=== PATIENT | male | born 1985 | race African-American/Black ===

== ENCOUNTER 2019-05-12 08:29 | Emergency (ER) | payer BC, SELFPAY ==
[2019-05-12 08:30] VITALS: BP 160/80; PULSE 97; RESP 16; TEMP 36.4; O2SAT 100; BMI 33.0
--- NOTE | 2019-05-12 08:47 | CT_ITS ---
STUDY: CT ABDOMEN AND PELVIS WITH CONTRAST REASON FOR EXAM: Male, 33 years old. ABD AND BACK PAIN, NAUSEA, BLOODY STOOL SINCE YESTERDAY, NO PREV SURG, HTN ON NO MEDS RADIATION DOSAGE (If Supplied By Facility): CTDIvol = ( 15.12 ) mGy, DLP = ( 1264.35 ) mGycm TECHNIQUE: Transaxial images were obtained from the dome of the diaphragm to the symphysis pubis without oral contrast. Oral and amp; IV Gastrografin and amp; 100mL Isovue-300 was administered. Sagittal and coronal images were reconstructed. Individualized dose optimization techniques were used for this CT. COMPARISON: None. FINDINGS: The visualized lung bases are unremarkable. The visualized portions of the heart are within normal limits. Normal liver. Normal gallbladder and extrahepatic biliary system. Normal spleen. Normal pancreas. Normal bilateral adrenal glands. Normal right kidney. Normal left kidney. There is a small hiatal hernia. Normal small intestine. Normal colon. The appendix is visualized and appears normal. Normal abdominal aorta. Normal inferior vena cava. Normal retroperitoneum. Normal urinary bladder. Small benign-appearing bilateral inguinal lymph nodes. Straightening of the normal lumbar lordosis. CT/Abdomen/Pelvis WITH Contrast IMPRESSION: No acute abnormality is seen. Electronically Signed: Valdez Olmos, at 10:55 EST , Service support ,
--- NOTE | 2019-05-12 09:01 | ED.VISSUMM ---
- ER Visit Summary Date of Service: 05/12/19 Chief Complaint: Back pain History of Present Illness: The patient is a 33 M presenting with back pain. Patient states this started on Sunday. He states he lifted up his dog who weighs 60 pounds and has had pain in his left lower back since. He denies radiation of pain. Denies bowel or bladder incontinence. He is able to ambulate with pain. He went to [facility] on Sunday and was given prescription for [place], Valium, naproxen. He states he continues to have pain. He states since yesterday he has been having blood in his stool. He states initially was constipated and now is having loose stool with bright red blood. He complains of diffuse abdominal pain. Denies nausea or vomiting. Denies fever. Denies other complaints. Physical Examination: Vitals are stable. Patient is afebrile. Alert no acute distress. HEENT exam is unremarkable. Neck is supple. Lungs are clear and equal bilaterally. Heart is regular rate and rhythm. Abdomen is soft diffuse tenderness with no guarding or rebound Back: Left paraspinal lumbar muscle tenderness, no midline tenderness Extremities are unremarkable. Skin is warm and dry. No focal neurologic deficit. Normal strength and sensation Remainder of exam is unremarkable. Emergency Department Course and Treatment: Patient was given morphine, Zofran IV. CBC, chemistries unremarkable. Total bili 1.5. Urinalysis shows 10-25 white blood cells, 0-5 epithelial cells. Urine culture was sent. Patient denies penile discharge, rash, concerns for STD. Stool is guaiac negative. CT abdomen pelvis shows no acute abnormality. Patient continues to have pain and was given Dilaudid. On reevaluation he is resting comfortably. He is given prescriptions for Flexeril and Lidocaine patch. He is given prescription for Zofran and Bactrim. He is given Dr. Bhagat on-call for no doctor for follow-up. Advised return ED if worsening complaints. Disposition: Discharge home Impression: Lumbar strain, UTI, reported GI bleed This note was generated with [employer] dictation software. It may contain incorrect words, spelling, and punctuation that were not noted in review of the chart prior to signing ED Disposition - Plan for ED Patient: Instructions: Relieving Back Pain, Understanding Urinary Tract Infections (UTIs) Prescriptions: Smz/Tmp Ds [Bactrim Ds] 1 tab PO BID #14 tab Prescription Printed cycloBENZAPRine HCl [Flexeril] 10 mg PO TID PRN #20 tab PRN Reason: Muscle Spasm Prescription Printed Lidocaine [Lidocaine Pain Relief] 1 ea TP DAILY #7 adh..patch Prescription Printed Ondansetron [Zofran Odt] 4 mg PO Q8H PRN PRN #10 tab PRN Reason: Nausea Prescription Printed Referrals: Mega Bhagat III, MD [STAFF PHYSICIAN] -
[2019-05-12 09:09] LABS: Absolute Lymphocyte Count 2.16 X10^3/uL (0.83-4.51); Absolute Neutrophil Count 3.3 X10^3/uL (2.0-7.7); Basophil# 0.02 X10^3/uL; Basophil% 0.3 % (0-1); Eosinophil# 0.15 X10^3/uL; Eosinophils% 2.4 % (0-5); Hematocrit 43.5 % (40-54); Hemoglobin 14.4 g/dL (13.0-16.5); Lymphocyte # 2.16 X10^3/ul (4.0); Lymphocyte % 34.6 % (19-41); Mean Corp Hgb Conc 33.1 g/dL (32-36); Mean Corpuscular Hgb 28.1 pg (27.0-32.0); Mean Corpuscular Volume 84.8 fL (80-94); Mean Platelet Vol. 9.6 fl (6.2-12.0); Monocyte# 0.57 X10^3/uL; Monocyte% 9.1 % (0-10); NRBC Flagged by Analyzer 0 % (0-5); Neutrophil # 3.33 X10^3/uL (2.7-7.7); Neutrophil % 53.4 % (47-70); Platelet Count 260 K/mm3 (150-450); Red Blood Count 5.13 M/mm3 (4.6-6.2); White Blood Count 6.2 K/mm3 (4.4-11.0)
[2019-05-12 09:27] LABS: ALB/GLOB Ratio 1.4 RATIO (0.9-2.4); AST(SGOT) 26 U/L (15-37); Alanine Aminotransfer ALT/SGPT 47 U/L (16-61); Albumin, Serum 4.2 g/dL (3.2-5.0); Alkaline Phosphatase 68 U/L (45-117); Anion Gap 5 (5-15); BUN 14 mg/dL (7-18); BUN/Creat Ratio 19.5 RATIO (10-20); Calcium,Total 9.1 mg/dL (8.5-10.1); Chloride 102 mmol/L (98-107); Creatinine, Serum 0.72 mg/dL (0.70-1.30); EST Glomerular Filtration Rate 132 mL/min (>60); Est Glom Filt Rate - Afr Amer 159 mL/min (>60); Estimated Creatinine Clearance 161.83 ml/min; Glucose 96 mg/dL (74-106); Potassium 3.6 mmol/L (3.5-5.1); Protein, Total 7.2 g/dL (6.4-8.2); Sodium Level 136 mmol/L (136-145)
[2019-05-12] MEDS: 0.9% Normal Saline 1,000 ML 1000 ML IV (09:43)
[2019-05-12] MEDS: Ondansetron 4 MG/2 ML Vial IV (09:43)
[2019-05-12] MEDS: Morphine 4 MG/ML Syringe IV (09:44)
[2019-05-12 10:56] LABS: Mucous, Urine 0 SEEN /hpf (<or=2+)
[2019-05-12 11:02] LABS: Color, Urine Yellow (Yellow); Glucose, Dipstick Normal (Normal); Ketone-Dipstick Negative (Negative); Leukocyte Esterase-Dipstick 500 /ul (Negative); Nitrite-Dipstick Negative (Negative); Occult Blood-Urine 10 /ul (Negative); Protein-Dipstick Negative (Negative); Urine Bilirubin Dipstick Negative (Negative); Urine Clarity Sl. Cloudy (Clear); Urine Urobilinogen Normal (Normal)
[2019-05-12 11:03] VITALS: RESP 18
[2019-05-12] MEDS: HYDROmorphone 1 MG/ML Syringe IV (11:13)
[2019-05-12 11:17] LABS: Bacteria RARE /hpf (None Seen); Red Blood Cells-Urine 0-5 SEEN /hpf (0-5); Squamous Epithelial Cells - UA 0-5 SEEN /hpf (0-5); White Blood Cells 10-25 SEEN /hpf (0-5)
--- NOTE | 2019-05-12 11:35 | ED.DEP ---
ED Disposition - Plan for ED Patient: Instructions: Relieving Back Pain, Understanding Urinary Tract Infections (UTIs) Prescriptions: Smz/Tmp Ds [Bactrim Ds] 1 tablet PO BID #14 tablet cycloBENZAPRine HCl [Flexeril] 10 mg PO TID PRN #20 tablet PRN Reason: Muscle Spasm Lidocaine [Lidocaine Pain Relief] 1 each TP DAILY #7 adh..patch Ondansetron [Zofran Odt] 4 mg PO Q8H PRN PRN #10 tablet PRN Reason: Nausea Referrals: Mega Bhagat III, MD [STAFF PHYSICIAN] -
[2019-05-12] MEDS: Smz/Tmp Ds Tablet 1 TABLET PO (12:00)
== END 2019-05-12 12:01 | disposition home or self-care (01) ==
PROVIDERS: Emergency Provider Emergency Medicine
DX: S39.012A Strain of muscle, fascia and tendon of lower back, initial encounter (principal); N39.0 Urinary tract infection, site not specified; K92.1 Melena; X50.0XXA Overexertion from strenuous movement or load, initial encounter; X50.9XXA Other and unspecified overexertion or strenuous movements or postures, initial encounter; Y93.89 Activity, other specified; Y92.89 Other specified places as the place of occurrence of the external cause; Y99.8 Other external cause status
CPT/HCPCS: 74177; 80053; 81001; 82274; 85025; 87086; 87088; 96361; 96374; 96375; 99284; J7030; Q9967; A4216; J2405

== ENCOUNTER 2021-06-01 09:48 | Emergency (ER) | payer BC, SELFPAY ==
[2021-06-01 09:51] VITALS: BP 107/90; PULSE 64; RESP 17; TEMP 36.3; O2SAT 100; BMI 30.4
--- NOTE | 2021-06-01 10:22 | EKG12_ITS ---
Test Reason : CP Blood Pressure : / mmHG Vent. Rate : 060 BPM Atrial Rate : 060 BPM P-R Int : 152 ms QRS Dur : 100 ms QT Int : 380 ms P-R-T Axes : 060 067 034 degrees QTc Int : 380 ms Normal sinus rhythm Normal ECG Confirmed by ZENAIDA ROMAN, GRICELDA ([id number]), editorial cartoonist KUMAR HUMPHREY ([id number]) on 06/02/2021 1:58:05 PM Referred By: KRISTIE/GREGORY Confirmed By:RENA ESTEVEZ MD
--- NOTE | 2021-06-01 10:22 | RAD_ITS ---
STUDY: X-RAY CHEST REASON FOR EXAM: Male, 35 years old. Chest pain radiating into back TECHNIQUE: Single AP portable view of the chest. COMPARISON: None. FINDINGS: EKG electrodes are seen. The lungs are clear and expanded. There is no demonstrated pleural abnormality. Normal size heart. Normal mediastinum and niko. Normal visualized pulmonary arteries. Normal visualized aortic arch and descending thoracic aorta. Normal visualized thoracic spine. Normal visualized ribs, clavicles, and shoulders. There is no demonstrated abnormality of the visualized soft tissue structures of the upper abdomen. RAD/Chest PA and Lateral IMPRESSION: Normal x-ray examination of the chest. Electronically Signed: Valdez Olmos MD at 10:55 EST ,
--- NOTE | 2021-06-01 10:24 | NURSING ---
NO OLD EKGS
--- NOTE | 2021-06-01 10:25 | ED.VIS.CHEST ---
HPI History of Present Illness Chief Complaint: Chest Pain Informant: patient Onset/Context/Timing Onset: Today (4 hrs ago) Timing: Continuous Quality: Positive for Pain Location: Substernal (Radiates in the mid upper back) Current Severity: Moderate Maximum Severity: Moderate Worsened By: Movement of Torso and Breathing Relieved By: Remaining Still Associated Symptoms: Negative for Nausea, Vomiting, Diaphoresis, Dyspnea, Cough, Fever, Lightheadedness and Palpitations Narrative Narrative: Patient states he woke up this morning, went to the bathroom and while he was walking he noticed that he started having discomfort in his chest substernal radiating to his upper back it is persisted for hours he denies dyspnea associated with it. No recent symptoms of a DVT, no recent travel, immobilization, hospitalization, or surgery. No history of DVT or PE. He denies any recent injury or overuse that could explain this. He states he has had this discomfort off and on before and did not think much of it but this is worse and more persistent so he presented for it. His states they have been for 3 years and then that time he has complained of multiple physical ailments, but never seen any physician. PFSH PFSH Medical History no medical history no medical history Home Medications cyclobenzaprine 10 mg PO TID PRN #20 tab 05/12/19 [Rx Last Taken Unknown] lidocaine 1 ea TP DAILY #7 adh..patch 05/12/19 [Rx Last Taken Unknown] ondansetron 4 mg PO Q8H PRN PRN #10 tab 05/12/19 [Rx Last Taken Unknown] sulfamethoxazole-trimethoprim 1 tab PO BID #14 tab 05/12/19 [Rx Last Taken Unknown] naproxen 500 mg PO BID PRN #14 tab 06/01/21 [Rx Last Taken Unknown] Allergy/AdvReac Type Severity Reaction Status Date / Time acetaminophen [From Percocet] Allergy Vomiting Verified 06/01/21 09:50 oxycodone [From Percocet] Allergy Vomiting Verified 06/01/21 09:50 Surgical History no surgical history Social History (Updated 06/01/21 @ 10:[address] Obi Johnson MD) Smoking Status: Current every day smoker tobacco type: cigarettes substance use type: does not use ROS ROS ED Constitutional Constitutional ED: Denies chills or fever(s) Eyes Eyes: Denies change in vision or diplopia ENT ENT ED: Denies rhinorrhea or sore throat Cardiovascular Cardiovascular: Reports chest pain; Denies palpitations or pedal edema Respiratory/Chest Respiratory/Chest: Denies cough or dyspnea Gastrointestinal Gastrointestinal: Denies abdominal pain, diarrhea, nausea or vomiting Genitourinary Genitourinary ED: Denies dysuria or hematuria Musculoskeletal Musculoskeletal: Reports as per HPI and back pain; Denies neck pain Integumentary Denies abscess or rash Neurologic Neurologic: Denies headache(s), paresthesias or weakness Psychiatric Psychiatric: Denies anxiety or suicidal thoughts EXAM Physical Exam Const Vital Signs: 06/01/21 09:51 06/01/21 11:19 Temperature 97.4 F L Temperature Source Temporal Pulse Rate 64 Respiratory Rate 17 Respiratory Effort Normal Non-Labored Blood Pressure 107/90 H Blood Pressure Mean 95 Pulse Ox 100 Oxygen Delivery Method Room Air Positive well nourished and well developed General Appearance ED: well developed and NAD HEENT Reports moist mucous membranes normocephalic and atraumatic Eyes PERRL and EOMs intact bilaterally Neck full ROM and supple Resp normal respiratory effort and clear to auscultation bilaterally Cardio regular rate, regular rhythm and no murmurs Rate: Negative for tachycardic GI non-tender and non-distended Auscultation: normoactive bowel sounds Palpation: soft Back/Spine no CVA tenderness General Back: other FROM Extremity normal to inspection, no calf tenderness and no pedal edema General Extremety ED: Negative for edema, pulses abnormal or tenderness General Extremity: Negative for edema or pulses abnormal Neuro oriented x3, CN's II-XII intact bilaterally and no sensory deficits noted Sensorium / Orientation: awake and alert Motor Exam: strength 5/5 throughout Skin no rashes or lesions noted and no wounds Heart Score History: Slightly/Non-Suspicious ECG: Normal Age: </= 45 years Risk Factors: 1 or 2 Risk Factors (Smoking) Troponin: </= Normal Limit Score: 1 MDM MDM MDM Narrative Medical decision making narrative: Patient's work-up is normal and his PERC score is 0. His chest x-ray shows a narrow mediastinum, he does not have tearing sensation and is no distress, I do not think this is an aortic dissection. He was given a GI cocktail given that the discomfort is central and could be esophageal, did not help anything so he was then given Toradol which helped some. I think it is reasonable to treat him as pleurisy. The majority of the pain is worse when he moves around. If he gets a lot worse and has dyspnea or other symptoms I recommend coming back for a CTA, but I do not think that is necessary right now. I will treat him with NSAIDs and give him a referral for PCP and he is comfortable with that plan. Lab Data Attestation: I reviewed the patient's lab results. Labs: Laboratory Results - last 24 hr 06/01/21 06/01/21 10:00 10:00 WBC 5.7 RBC 4.98 Hgb 13.7 Hct 42.4 MCV 85.1 MCH 27.5 MCHC 32.3 RDW Std Deviation 42.2 RDW Coeff of Kurtis 13.6 Plt Count 257 MPV 9.1 Immature Gran % (Auto) 0.200 Neut % (Auto) 50.9 Lymph % (Auto) 37.7 [place] % (Auto) 8.8 Eos % (Auto) 1.9 Baso % (Auto) 0.5 Absolute Neuts (auto) 2.9 Absolute Lymphs (auto) 2.14 Nucleated RBC % 0 Sodium 140 Potassium 3.8 Chloride 104 Carbon Dioxide 33.0 H Anion Gap 3 L BUN 10 Creatinine 0.86 Estim Creat Clear Calc 129.08 Est GFR (MDRD) Af Amer 129 Est GFR (MDRD) Non-Af 107 BUN/Creatinine Ratio 11.7 Glucose 96 Calcium 9.5 Troponin I High Sens 8 Radiography Diagnostic Testing: Clinical Impression(s) from Imaging Studies Chest X-Ray 06/01/21 10:22 IMPRESSION: Normal x-ray examination of the chest. Electronically Signed: Valdez Olmos MD at 10:55 EST , EKG Initial EKG: Attestation: I personally reviewed and interpreted this EKG as follows: Interpretation: Sinus Rhythm (60) and No Acute Injury Pattern Comments: No [id number]. Normal EKG. Prior EKG tracings: not available for review Prior: No Prior Discharge Plan Triage Chief Complaint: Chest Pain ED Provider: Obi Johnson Dx/Rx/DC Orders Clinical Impression: Pleurisy Instructions: ED Pleurisy Prescriptions: New naproxen 500 MG tablet 500 mg PO BID PRN (Reason: Pain) Qty: 14 RF: 0 No Action cyclobenzaprine 10 MG tablet 10 mg PO TID PRN (Reason: Muscle Spasm) Qty: 20 RF: 0 sulfamethoxazole-trimethoprim 1 TABLET tablet 1 tab PO BID Qty: 14 RF: 0 ondansetron 4 MG tablet 4 mg PO Q8H PRN PRN (Reason: Nausea) Qty: 10 RF: 0 lidocaine 1 EACH adhesive patch,medicated 1 ea TP DAILY Qty: 7 RF: 0 Stand Alone Forms: ED Work / School Excuse Primary Care Provider: Care Physician,No Primary Referrals: Tasha Bush MD [STAFF PHYSICIAN] - 3-5 Days if not improving Disposition Disposition: Home, Self Care
[2021-06-01] MEDS: Mag Hydrox/Al Hydrox/Simeth 30 ML UDC PO (10:32)
[2021-06-01 10:34] LABS: Absolute Lymphocyte Count 2.14 X10^3/uL (0.83-4.51); Absolute Neutrophil Count 2.9 X10^3/uL (2.0-7.7); Basophil# 0.03 X10^3/uL; Basophil% 0.5 % (0-1); Eosinophil# 0.11 X10^3/uL; Eosinophils% 1.9 % (0-5); Hematocrit 42.4 % (40-54); Hemoglobin 13.7 g/dL (13.0-16.5); Lymphocyte # 2.14 X10^3/ul (0.83-4.51); Lymphocyte % 37.7 % (19-41); Mean Corp Hgb Conc 32.3 g/dL (32-36); Mean Corpuscular Hgb 27.5 pg (27.0-32.0); Mean Corpuscular Volume 85.1 fL (80-94); Mean Platelet Vol. 9.1 fl (6.2-12.0); Monocyte% 8.8 % (0-10); NRBC Flagged by Analyzer 0 % (0-5); Neutrophil # 2.88 X10^3/uL (2.7-7.7); Neutrophil % 50.9 % (47-70); Platelet Count 257 K/mm3 (150-450); RBC Distribution Width CV 13.6 % (11.6-14.6); RBC Distribution Width SD 42.2 fl (35.1-43.9); Red Blood Count 4.98 M/mm3 (4.6-6.2); White Blood Count 5.7 K/mm3 (4.4-11.0)
[2021-06-01 11:00] LABS: Anion Gap 3 (5-15); BUN 10 mg/dL (7-18); BUN/Creat Ratio 11.7 RATIO (10-20); Calcium,Total 9.5 mg/dL (8.5-10.1); Chloride 104 mmol/L (98-107); Creatinine, Serum 0.86 mg/dL (0.70-1.30); EST Glomerular Filtration Rate 107 mL/min (>60); Est Glom Filt Rate - Afr Amer 129 mL/min (>60); Estimated Creatinine Clearance 129.08 ml/min; Glucose 96 mg/dL (74-106); Potassium 3.8 mmol/L (3.5-5.1); Sodium Level 140 mmol/L (136-145); Troponin-I HS 8 pg/mL (3.0-78.0)
[2021-06-01] MEDS: Ketorolac 30 MG/ML Syringe IV (11:36)
[2021-06-01 12:25] VITALS: BP 131/68
== END 2021-06-01 12:26 | disposition home or self-care (01) ==
PROVIDERS: Emergency Provider Emergency Medicine; Visit Provider Emergency Medicine
DX: R09.1 Pleurisy (principal); F17.210 Nicotine dependence, cigarettes, uncomplicated
CPT/HCPCS: 71046; 80048; 84484; 85025; 93005; 96374; 99283; A4216

== ENCOUNTER 2022-09-06 09:20 | Emergency (ER) | payer BC, SELFPAY ==
[2022-09-06 09:20] VITALS: PULSE 76; RESP 16; TEMP 36.4; O2SAT 98; BMI 27.1
[2022-09-06 09:23] VITALS: BP 127/89
--- NOTE | 2022-09-06 09:40 | EDS_ITS ---
HPI History of Present Illness HPI Narrative: 37 old male complaining of atraumatic left lateral leg pain. Chief Complaint: Lower Extremity Injury Informant: patient and spouse/S.O. Occured/Mechanism Mechanism/Context: No injury and No blunt trauma Onset/Context/Timing Onset: Days Context: Gradual Onset Timing: Continuous Quality of Pain: Sharp Current Severity: Mild Maximum Severity: Mild Associated Symptoms Associated Symptoms: Negative for Parasthesia, Weakness or Loss of Funtion Narrative Narrative: 37-year-old male no significant past medical or surgical history. States has had left lateral leg pain for about a week. Denies any type of fall injury or trauma. Denies any back pain. No prior back or leg surgery. No redness, swelling or fever. Worse with ambulating. No prior history. Prior similar symptoms: No Recent Illness/Hospitalization: No PFSH PFSH Medical History no medical history no medical history Home Medications cyclobenzaprine 10 mg tablet 10 mg PO TID PRN Muscle Spasm #20 tabs 05/12/19 [Rx Last Taken Unknown] lidocaine 4 % topical patch 1 ea TP DAILY ##7 05/12/19 [Rx Last Taken Unknown] ondansetron 4 mg disintegrating tablet 4 mg PO Q8H PRN PRN Nausea #10 tabs 05/12/19 [Rx Last Taken Unknown] sulfamethoxazole 800 mg-trimethoprim 160 mg tablet 1 tab PO BID #14 tabs 05/12/19 [Rx Last Taken Unknown] naproxen 500 mg tablet 500 mg PO BID PRN Pain #14 tabs 06/01/21 [Rx Last Taken Unknown] prednisone 20 mg tablet 40 mg PO DAILY 7 days #14 tabs 09/06/22 [Rx Last Taken Unknown] Allergy/AdvReac Type Severity Reaction Status Date / Time acetaminophen [From Percocet] Allergy Vomiting Verified 09/06/22 09:20 oxycodone [From Percocet] Allergy Vomiting Verified 09/06/22 09:20 Social History Smoking Status: Current every day smoker tobacco type: cigarettes substance use type: does not use ROS ROS ED ROS Narrative Denies recent illness. Review of Systems ROS Unobtainable: Denies due to encephalopathy Constitutional Constitutional ED: Denies chills or fever(s) Eyes Eyes: Denies blurry vision ENT ENT ED: Denies ear pain Cardiovascular Cardiovascular: Denies chest pain Respiratory/Chest Respiratory/Chest: Denies cough or dyspnea Gastrointestinal Gastrointestinal: Denies abdominal pain Genitourinary Genitourinary ED: Denies dysuria or hematuria Musculoskeletal Musculoskeletal: Denies arthralgias Integumentary Denies abscess or Abrasions Neurologic Neurologic: Denies headache(s) Psychiatric Psychiatric: Denies anxiety or depression Endocrine Endocrinology: Denies polydipsia Hematologic/Lymphatic Hematologic/Lymphatic: Denies easy bleeding Allergic/Immunologic Allergic/Immunologic ED: Denies mouth swelling EXAM Physical Exam Narrative Exam Narrative: 37-year-old male no acute distress. Vital signs stable afebrile. HEENT exam unremarkable. Neck nontender no lymphadenopathy. Lungs clear to auscultation bilaterally. Heart regular rate rhythm no murmur. Chest wall nontender. Abdomen soft nontender. Back cervical, thoracic and lumbar spine and back are all nontender. No SI tenderness. He is able to stand and ambulate. He has normal range of motion of both hips, knees, ankles and feet. Normal dorsi and plantarflexion. Normal touch sensation. Normal DP pulse. Calves are nontender without edema or cords. He describes the pain on his left lateral leg from his left hip Aloi down to his left ankle. Negative straight leg raise. Neurologic exam normal. Normal motor strength and sensation. Const Vital Signs: 09/06/22 09:20 09/06/22 09:23 Temperature 97.6 F L Temperature Source Temporal Pulse Rate 76 Respiratory Rate 16 Blood Pressure 127/89 H Blood Pressure Mean 101 Pulse Ox 98 Oxygen Delivery Method Room Air Positive well nourished and well developed; Negative for obese, cachectic, contractures or unkempt General Appearance ED: well developed and NAD; Negative for unkempt, cachectic or contractures Nutritional Appearance: Negative for cachectic or obese HEENT Reports moist mucous membranes normocephalic and atraumatic; Negative for trauma or tenderness Eyes PERRL General Eye ED: Negative for other Neck full ROM and supple Thyroid: Negative for tender Lymph Lymphatic: Negative for other Chest Wall inspection of chest normal and palpation of chest normal Chest: Negative for other Resp normal respiratory effort, no retractions and clear to auscultation bilaterally Effort and Inspection: Negative for pain with movement Auscultation: Negative for rales, rhonchi or wheezes Cardio regular rate, regular rhythm, S1 normal heart sound, S2 normal heart sound and no murmurs Rhythm: Negative for abnormal rhythm GI non-tender, non-distended and no masses Inspection: Negative for abdominal distention Auscultation: normoactive bowel sounds Palpation: soft; Negative for tender or guarding Back/Spine no CVA tenderness General Back: Negative for CVA tenderness Cervical Spine: Negative for cervical spine tenderness Thoracic Spine / Upper Back: Negative for thoracic spinal tenderness Lumbar Spine / Lower Back: straight leg raise negative bilaterally; Negative for lumbar spinal tenderness Extremity normal to inspection and full ROM General Extremety ED: Negative for cyanosis, edema or weight-bearing difficulty General Extremity: Negative for cyanosis, edema or weight-bearing difficulty Neuro oriented x3, CN's II-XII intact bilaterally, moves all extremities and no sensory deficits noted Sensorium / Orientation: alert, oriented to person, oriented to place and oriented to time; Negative for orientation impaired or confused Motor Exam: strength 5/5 throughout Psych mental status grossly normal Appearance: Negative for unkempt Speech: No other Mood & Affect: Negative for anxious Skin no wounds Lesions: no lesions Rashes: no rashes Trauma: Negative for abrasion or laceration MDM MDM MDM Narrative Medical decision making narrative: 37-year-old male who has pain of the left lateral leg. Is not reproducible. He has normal motor strength and sensation to his left leg normal in appearance. Normal dorsi plantar flexion. Normal sensation. This may be neuropathic pain. He has no pain in his back or his left SI joint. Negative straight leg raise. He does not need any imaging he had no fall or trauma. There is no bony tenderness or deformity. He does not need any labs. He will be started on prednisone 40 mg a day for a week if this is not improving his pain he can follow-up with a local primary care physician. History & Record Review Discussion w/independent historian: Patient and Significant other Discharge Plan Triage Chief Complaint: Lower Extremity Injury ED Provider: Jason Montiel Dx/Rx/DC Orders Clinical Impression: Acute leg pain Instructions: ED Pain, Acute, Uncertain Cause Prescriptions: New prednisone 20 mg tablet 40 mg PO DAILY 7 Days Qty: 14 0RF No Action cyclobenzaprine 10 MG tablet 10 mg PO TID PRN (Reason: Muscle Spasm) Qty: 20 0RF sulfamethoxazole-trimethoprim 1 TABLET tablet 1 tab PO BID Qty: 14 0RF ondansetron 4 MG tablet 4 mg PO Q8H PRN PRN (Reason: Nausea) Qty: 10 0RF lidocaine 1 EACH adhesive patch,medicated 1 ea TP DAILY Qty: 7 0RF naproxen 500 MG tablet 500 mg PO BID PRN (Reason: Pain) Qty: 14 0RF Primary Care Provider: Care Physician,No Primary Referrals: Marshall Durbin MD [Med Staff - Principal Java Software Engineer] - 10-14 Days if not better Care Physician,No Primary [Primary Care Provider] - Activity Restrictions/Additional Instructions: The pain in your left lateral leg may be from nerve inflammation or could be musculoskeletal pain. Prednisone 40 mg a day for the next 7 days. If not improving you will need further evaluation. X-rays and blood work at this time would be of no benefit. Disposition Disposition: Home, Self Care
[2022-09-06] MEDS: predniSONE 20 MG Tablet 40 MG PO (09:52)
== END 2022-09-06 09:57 | disposition home or self-care (01) ==
PROVIDERS: Emergency Provider Emergency Medicine; Visit Provider Emergency Medicine
DX: M79.605 Pain in left leg (principal); F17.210 Nicotine dependence, cigarettes, uncomplicated
CPT/HCPCS: 99283

== ENCOUNTER 2024-11-20 14:58 | Emergency (ER) | payer BC, SELFPAY ==
[2024-11-20 14:58] VITALS: BP 139/101; PULSE 70; RESP 18; TEMP 37; O2SAT 99; BMI 24.4
--- NOTE | 2024-11-20 15:10 | CT_ITS ---
PROCEDURE: BRAIN/HEAD WITHOUT CONTRAST 11/20/2024 REASON FOR EXAM: FALL, HEADACHE TECHNIQUE: BRAIN/HEAD WITHOUT CONTRAST Coronal and Sagittal reconstruction series were provided. One or more dose reduction techniques were used (e.g., Automated exposure control, adjustment of the mA and/or kV according to patient size, use of iterative reconstruction technique. RADIATION DOSE SUMMARY: CTDlvol: 47 mGy DLP: 925 mGycm FINDINGS: The ventricles are normal in size and midline in position. No evidence of acute hemorrhage or infarction. No extra-axial blood or fluid collections. The paranasal sinuses and mastoid air cells are clear. The calvarial vault and skull base are intact. CT/Brain/Head without Contrast IMPRESSION: No acute intracranial abnormality. Reading Location: [id number]
--- NOTE | 2024-11-20 15:10 | CT_ITS ---
PROCEDURE: SINUS/FACIAL BONE 11/20/2024 REASON FOR EXAM: FALL, PAIN TECHNIQUE: SINUS/FACIAL BONE Coronal and Sagittal reconstruction series were provided. One or more dose reduction techniques were used (e.g., Automated exposure control, adjustment of the mA and/or kV according to patient size, use of iterative reconstruction technique). RADIATION DOSE SUMMARY: CTDlvol: 25 mGy DLP: 548 mGycm FINDINGS: No evidence of acute fracture or dislocation. The paranasal sinuses are clear. The orbits are unremarkable. CT/Sinus/Facial Bone IMPRESSION: No acute facial bone fracture. Reading Location: [id number]
--- NOTE | 2024-11-20 15:11 | EDS_ITS ---
HPI History of Present Illness Chief Complaint: Head Injury Narrative Narrative: Patient is a 39-year-old male presenting to the emergency department for fall. 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 States that he hit his head on the edge of a counter. Does not remember losing consciousness but his coworkers said that he was saying some weird things that I would not say. He denies any neck or back pain. Denies any other injuries. He was able to get up on his own. States that he has a mild headache and pain above his left eye when it is pressed on. Did not take anything for pain. Is not on any oral anticoagulation. Denies any visual changes. PFSH PFSH Home Medications ?Medication ?Instructions ?Recorded ?Last Taken ?Type cyclobenzaprine 10 mg tablet 10 mg PO TID PRN Muscle S pasm #20 05/12/19 Unknown Rx tabs lidocaine 4 % topical patch 1 ea TP DAILY ##7 05/12/19 Unknown Rx ondansetron 4 mg disintegrating 4 mg PO Q8H PRN PRN Na usea #10 tabs 05/12/19 Unknown Rx tablet sulfamethoxazole 800 1 tab PO BID #14 tabs Unknown Rx mg-trimethoprim 160 mg tablet naproxen 500 mg tablet 500 mg PO BID PRN Pain #14 t abs 06/01/21 Unknown Rx prednisone 20 mg tablet 40 mg (2 x 20 mg) PO DAILY 7 days 09/06/22 Unknown Rx #14 tabs Allergy/AdvReac Type Severity Reaction Status Date / Time acetaminophen (From Percocet) Allergy Vomiting Verified 09/06/22 09:20 oxycodone (From Percocet) Allergy Vomiting Verified 09/06/22 09:20 Social History Smoking Status: Current every day smoker tobacco type: cigarettes substance use type: does not use ROS ROS ED ROS Narrative see HPI EXAM Physical Exam Narrative Exam Narrative: Vital signs: Reviewed General: Alert and orientedx3. No acute distress HEENT: Head is normocephalic and atraumatic. No cephalhematoma, abrasion or laceration to the head. There is a small abrasion directly underneath the left medial eyebrow. No gaping of the wound. There is some tenderness to palpation around this region. Sinuses nontender, pupils equal round and reactive. Extraocular movements intact and nonpainful. Nares are patent. Oropharynx and throat exams normal. Neck: Supple without lymphadenopathy nontender. No midline cervical spinal tenderness palpation. No step-offs or deformities. Cardiovascular: Regular rate and rhythm, no murmurs. No rubs or gallops. Normal S1 and S2 Respiratory: Clear to auscultation bilaterally. No wheezes, rales, rhonchi Abdominal: Soft and nontender. Normal bowel sounds. No guarding or rebound. Nonsurgical abdomen Extremities: Extremities are nontender to palpation and have normal active range of motion. No bruising. Normal sensation. Skin: No rash or redness. Neurological: Cranial nerves II through XII are grossly intact. Normal strength and sensation. Normal cerebellar function. The rest of the physical exam is unremarkable Const Vital Signs: 11/20/24 14:58 11/20/24 14:58 Temperature 98.6 F Temperature Source Oral Pulse Rate 70 Respiratory Rate 18 Respiratory Effort Normal Respiratory Depth Normal Respiratory Pattern Normal Blood Pressure 139/101 H Blood Pressure Mean 113 Pulse Ox 99 Oxygen Delivery Method Room Air Room Air MDM MDM MDM Narrative Medical decision making narrative: Patient is a 39-year-old male presenting to emergency department for mechanical fall and head injury. Patient was seen and examined. Vitals are stable. Patient resting bed comfortably in no acute distress. He was offered analgesia but declined. CT of the brain and facial bones was ordered. I do not suspect any intracranial bleed or facial bone fractures based on the exam however patient does not remember if he lost consciousness or not. He reports tetanus vaccine in the last [address] of the brain shows no acute intracranial abnormality. CT facial bones with no acute facial bone fracture. Patient was updated on the negative workup. He was given concussion information. Patient discharged from the Emergency Department. I do not feel that the patient's evaluation reveals any acute reason for admission at this time. I instructed them to either follow-up with their primary care physician or promptly return to the Emergency Department for reevaluation should symptoms worsen or new symptoms develop. I explained what symptoms would indicate the need to return to the emergency department. Shared decision making was used. The patient voiced understanding of the treatment plan and is agreeable with it. Clinical impression head injury facial abrasion Radiography Diagnostic Testing: Clinical Impression(s) from Imaging Studies Brain CT 11/20/24 15:10 IMPRESSION: No acute intracranial abnormality. Reading Location: [facility] Facial/Sinus 11/20/24 15:10 IMPRESSION: No acute facial bone fracture. Reading Location: [facility] Discharge Plan Triage Chief Complaint: Head Injury ED Provider: Malia Blackburn Dx/Rx/DC Orders Clinical Impression: Head injury Instructions: ED Concussion, ED Head Injury (Adult) Prescriptions: No Action cyclobenzaprine 10 MG tablet 10 mg PO TID PRN (Reason: Muscle Spasm) Qty: 20 0RF sulfamethoxazole-trimethoprim 1 TABLET tablet 1 tab PO BID Qty: 14 0RF ondansetron 4 MG tablet 4 mg PO Q8H PRN PRN (Reason: Nausea) Qty: 10 0RF lidocaine 1 EACH adhesive patch,medicated 1 ea TP DAILY Qty: 7 0RF naproxen 500 MG tablet 500 mg PO BID PRN (Reason: Pain) Qty: 14 0RF prednisone 20 mg tablet 40 mg PO DAILY 7 Days Qty: 14 0RF Stand Alone Forms: ED Work / School Excuse Primary Care Provider: Care Physician,No Primary Referrals: Arline Carrion MD [Med Staff - [employer]] - 2 Days Care Physician,No Primary [Primary Care Provider] - Activity Restrictions/Additional Instructions: Your evaluation in the Emergency Department did not reveal any acute reason for admission. However, I want to emphasize that you may be early in the course of a disease process or illness even if it is not present. For this reason you should follow-up within 24 hours for reevaluation with either your primary care physician or if necessary back here in the Emergency Department. You should return to the Emergency Department immediately if your symptoms worsen or new symptoms develop. Print Language: Bulgarian Disposition Disposition: Home, Self Care
[2024-11-20 16:58] VITALS: BP 131/99; PULSE 76; RESP 16; O2SAT 99
[2024-11-20 17:28] VITALS: BP 131/99; PULSE 76; RESP 16; TEMP 36.6; O2SAT 99
== END 2024-11-20 17:30 | disposition home or self-care (01) ==
PROVIDERS: Emergency Provider Student in an Organized Health Care Education/Training Program; Visit Provider Student in an Organized Health Care Education/Training Program
DX: S09.90XA Unspecified injury of head, initial encounter (principal); F17.210 Nicotine dependence, cigarettes, uncomplicated; W01.0XXA Fall on same level from slipping, tripping and stumbling without subsequent striking against object, initial encounter; Y99.0 Civilian activity done for income or pay
CPT/HCPCS: 70450; 70486; 99282